=== PATIENT | male | born 1995 | race Two or more races ===

== ENCOUNTER 2016-12-22 19:12 | Emergency (ER) | payer OTHER ==
[2016-12-22 20:08] VITALS: BP 146/80
[2016-12-22] MEDS ORDERED: LoraTADine TAB(NF) 10 MG TAB (AUTOSUB CETIRIRIZINE) PO ONE (20:35)
[2016-12-22] MEDS ORDERED: Benzonatate CAP* 100 MG PO ONE (20:35)
--- NOTE | 2016-12-22 20:35 | UC ---
Throat Pain/Nasal Dudley HPI - HPI Summary HPI Summary: pt presents with c/o of nasal congestion and cough X 2 weeks. Pt denies fever chills or sore throat. - History of Current Complaint Chief Complaint: UCRespiratory Stated Complaint: HEADACHE/SORE THROAT/SINUS/FATIGUE Time Seen by Provider: 12/22/16 20:25 Hx Obtained From: Patient Onset/Duration: Gradual Onset, Lasting Weeks - 2 weeks Severity: Mild Cough: Nonproductive Associated Signs & Symptoms: Positive: Other - PND, and nasal congestion - Epiglottits Risk Factors Epiglottis Risk Factors: Negative - Allergies/Home Medications Allergies/Adverse Reactions: Allergies Allergy/AdvReac Type Severity Reaction Status Date / Time No Known Allergies Allergy Verified 12/22/16 20:06 PMH/Surg Hx/FS Hx/Imm Hx Previously Healthy: Yes - Surgical History Surgical History: Yes Surgery Procedure, Year, and Place: NON-DESCENDING RIGHT TESTICAL CORRECTION. CIRCUMCISION - Family History Known Family History: Negative: Hypertension - Social History Occupation: Student - at [employer] Alcohol Use: Occasionally Substance Use Type: None Smoking Status (MU): Never Smoked Tobacco Review of Systems Constitutional: Negative Skin: Negative Eyes: Negative ENT: Other - nasal congestion Respiratory: Cough Cardiovascular: Negative Gastrointestinal: Negative Genitourinary: Negative Motor: Negative Neurovascular: Negative Musculoskeletal: Negative Neurological: Negative Psychological: Negative All Other Systems Reviewed And Are Negative: Yes Physical Exam Triage Information Reviewed: Yes Appearance: Well-Appearing Vital Signs: Initial Vital Signs Temp 98.2 F 12/22/16 20:05 Pulse 75 12/22/16 20:05 Resp 16 12/22/16 20:05 BP 146/80 12/22/16 20:05 Pulse Ox 100 12/22/16 20:05 Vital Signs Reviewed: Yes Eye Exam: Normal ENT Exam: Other ENT: Positive: Nasal congestion, TM bulging - bilateral, clear fluid Neck exam: Normal Respiratory Exam: Normal Cardiovascular Exam: Normal Musculoskeletal Exam: Normal Neurological Exam: Normal Psychological Exam: Normal Skin Exam: Normal Throat Pain/Nasal Course/Dx - Differential Dx/Diagnosis Differential Diagnosis/HQI/PQRI: URI Provider Diagnoses: URI. allergic rhinitis Discharge - Discharge Plan Condition: Stable Disposition: HOME Prescriptions: Loratadine & Pseudoephedrine [Claritin-D 24 Hour 10-240 mg] 1 tab PO DAILY #14 tab Patient Education Materials: Upper Respiratory Infection (ED), Allergic Rhinitis (ED) Ref[place] [facility] [place]] IDALMIS Crowder [Medical Doctor] - Non Staff,Doctor [Primary Care Provider] - Additional Instructions: Please establish care with a PCP. We have provided options for primary care provider groups in the local area.
== END 2016-12-22 20:51 | disposition home or self-care (01) ==
LOC: UCCORT 19:12
DX: J06.9 Acute upper respiratory infection, unspecified (principal); J30.9 Allergic rhinitis, unspecified
CPT/HCPCS: 99212; A9270-GY; G0463

== ENCOUNTER 2017-07-19 16:25 | Emergency (ER) | payer OTHER ==
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
[2017-07-19 17:38] VITALS: BP 131/69
[2017-07-19] MEDS ORDERED: Ibuprofen TAB* 400 MG PO ONE (17:50)
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
== END 2017-07-19 19:20 | disposition home or self-care (01) ==
LOC: UCCORT 16:25
DX: M54.2 Cervicalgia (principal); M54.6 Pain in thoracic spine; M62.830 Muscle spasm of back
CPT/HCPCS: 72050; 72070; 99212; A9270-GY; G0463

== ENCOUNTER 2018-07-01 11:40 | Emergency (ER) | payer OTHER ==
[2018-07-01 13:01] VITALS: BP 134/83
--- NOTE | 2018-07-01 13:10 | UC ---
Throat Pain/Nasal Dudley HPI - HPI Summary HPI Summary: 22-year-old male here with a chief complaint of runny nose sore throat cough chest congestion for 2 weeks. Patient's been using [id number] medications which helped a little bit but then he gets worse again. Rhinorrhea is yellow and green. Now is at the most congestion and it. He does feel like he has some sputum coming up. No wheezes no chest pain. - History of Current Complaint Chief Complaint: UCRespiratory Stated Complaint: SINUSES, SORE THROAT, CONGESTION Time Seen by Provider: 07/01/18 12:59 Pain Intensity: 5 - Allergies/Home Medications Allergies/Adverse Reactions: Allergies Allergy/AdvReac Type Severity Reaction Status Date / Time No Known Allergies Allergy Verified 07/01/18 12:54 Home Medications: Home Medications Diphenhydra/Phenyleph/Acetamin [Theraflu Expressmax Cold Nt Lq] 245.5 ml PO ONCE PRN 07/01/18 [History Confirmed 07/01/18] Guaifen/Dextromethorphan/PE [Robitussin Childrens Coug] 1 liq PO Q4H PRN [History Confirmed 07/01/18] Phenylephrine HCl/Acetaminophn [Sinus Pressure/Pain/Adult 5-325 mg] 2 tab PO Q4H PRN 07/01/18 [History Confirmed 07/01/18] PMH/Surg Hx/FS Hx/Imm Hx Other Neurological History: RIGHT MCCAULEY'S PALSY - Surgical History Surgical History: Yes Surgery Procedure, Year, and Place: NON-DESCENDING RIGHT TESTICAL CORRECTION. CIRCUMCISION - Family History Known Family History: Positive: Cardiac Disease, Diabetes Negative: Hypertension Family History: Stroke - Social History Alcohol Use: Occasionally Substance Use Type: None Smoking Status (MU): Never Smoked Tobacco - Immunization History Vaccination Up to Date: Yes Review of Systems Constitutional: Negative Skin: Negative Eyes: Negative ENT: Sore Throat, Nasal Discharge, Sinus Congestion, Sinus Pain/Tenderness Respiratory: Cough Cardiovascular: Negative Gastrointestinal: Negative Motor: Negative Neurovascular: Negative Musculoskeletal: Negative Neurological: Negative Psychological: Negative Is Patient Immunocompromised?: No All Other Systems Reviewed And Are Negative: Yes Physical Exam Triage Information Reviewed: Yes Appearance: No Pain Distress, Well-Nourished, Ill-Appearing - MILD Vital Signs: Initial Vital Signs Temp 98.2 F 07/01/18 12:56 Pulse 81 07/01/18 12:56 Resp 16 07/01/18 12:56 BP 134/83 07/01/18 12:56 Pulse Ox 99 07/01/18 12:56 Vital Signs Reviewed: Yes Eye Exam: Normal Eyes: Positive: Conjunctiva Clear ENT: Positive: Pharyngeal erythema, Nasal congestion, Nasal drainage, TMs normal , Uvula midline Neck exam: Normal Neck: Positive: Supple Respiratory: Positive: Lungs clear, Normal breath sounds, No respiratory distress Cardiovascular: Positive: RRR Musculoskeletal Exam: Normal Musculoskeletal: Positive: Strength Intact, ROM Intact Neurological Exam: Normal Neurological: Positive: Alert, Muscle Tone Normal Psychological Exam: Normal Psychological: Positive: Age Appropriate Behavior Skin Exam: Normal Throat Pain/Nasal Course/Dx - Differential Dx/Diagnosis Provider Diagnoses: SINUSITIS Discharge - Sign-Out/Discharge Documenting (check all that apply): Patient Departure All imaging exams completed and their final reports reviewed: No Studies - Discharge Plan Condition: Stable Disposition: HOME Prescriptions: Amoxicillin/Clavulanate TAB* [Augmentin TAB 875*] 875 mg PO BID #20 tab Patient Education Materials: Sinusitis (ED) Referrals: [facility] [place] [facility] [place]] Additional Instructions: FOLLOW UP WITH YOUR DOCTOR IF NOT COMPLETELY IMPROVED. GET RECHECKED FOR ANY WORSENING OF YOUR CONDITION OR QUESTIONS OR CONCERNS. - Billing Disposition and Condition Condition: STABLE Disposition: Home
== END 2018-07-01 13:18 | disposition home or self-care (01) ==
LOC: UCCORT 11:40
DX: J32.9 Chronic sinusitis, unspecified (principal); R05 Cough; R09.89 Other specified symptoms and signs involving the circulatory and respiratory systems; Z79.899 Other long term (current) drug therapy
CPT/HCPCS: 99212; G0463